=== PATIENT | female | born 1970 | race Caucasian/White ===

== ENCOUNTER 2016-10-09 08:18 | Emergency (ER) | payer OTHER ==
[~2016-10-09 08:18] MED LIST: LISINOPRIL10 MG PO
[2016-10-09 08:53] LABS: MICRO INDICATED? YES; URINE APPEARANCE CLEAR; URINE BILIRUBIN NEG (NEG); URINE BLOOD 1+ (NEG); URINE COLOR YELLOW; URINE GLUCOSE NEG (NORM); URINE KETONE NEG (NEG); URINE LEUKOCYTE ESTERASE NEG (NEG); URINE NITRATE NEG (NEG); URINE PROTEIN NEG (NEG); URINE SOURCE CLEAN CATCH; URINE SPECIFIC GRAVITY 1.025 (1.003-1.035); URINE UROBILINOGEN 0.2 MG/DL (NORM)
[2016-10-09 08:56] LABS: CULTURE INDICATED? NO; URINE BACTERIA NEG (NEG); URINE MUCUS PRESENT; URINE SQUAMOUS EPITHELIAL CELL MANY /[HPF]; URINE WBC 0-2 /[HPF] (0-5)
[2016-10-12 15:09] LABS: CHLAMYDIA TRACH Not Detected (Not Detected); N GONOR Not Detected (Not Detected)
== END 2016-10-09 09:17 | disposition home or self-care (01) ==
LOC: SED 08:18
PROVIDERS: Emergency Medicine
DX: N72 Inflammatory disease of cervix uteri (principal); I16.0 Hypertensive urgency; F17.210 Nicotine dependence, cigarettes, uncomplicated; Z79.899 Other long term (current) drug therapy
CPT/HCPCS: 81003; 84703; 87491; 87591; 87808; 87905; 96372; 99284; J0696

== ENCOUNTER 2017-01-10 11:15 | Emergency (ER) | payer OTHER ==
[2017-01-10 12:01] LABS: URINE SOURCE CLEAN CATCH
[2017-01-10 12:03] LABS: URINE APPEARANCE CLEAR; URINE BILIRUBIN NEG (NEG); URINE BLOOD 1+ (NEG); URINE COLOR YELLOW; URINE GLUCOSE NEG (NORM); URINE KETONE NEG (NEG); URINE LEUKOCYTE ESTERASE 1+ (NEG); URINE NITRATE NEG (NEG); URINE PROTEIN 1+ (NEG); URINE SPECIFIC GRAVITY 1.025 (1.003-1.035); URINE UROBILINOGEN 0.2 MG/DL (NORM)
[2017-01-10 12:32] LABS: MICRO INDICATED? YES
[2017-01-10 12:41] LABS: URINE RBC 0-2 /[HPF] (0-2)
[2017-01-10 12:42] LABS: URINE BACTERIA 1+ (NEG); URINE SQUAMOUS EPITHELIAL CELL MODERATE /[HPF]
[2017-01-12 08:26] LABS: CHLAMYDIA TRACH Not Detected (Not Detected); N GONOR Not Detected (Not Detected)
== END 2017-01-10 12:51 | disposition home or self-care (01) ==
LOC: SED 11:15
PROVIDERS: Physician Assistant
DX: A59.09 Other urogenital trichomoniasis (principal); Z76.0 Encounter for issue of repeat prescription; N76.0 Acute vaginitis; I10 Essential (primary) hypertension; F17.210 Nicotine dependence, cigarettes, uncomplicated; Z79.899 Other long term (current) drug therapy
CPT/HCPCS: 81003; 87210; 87491; 87591; 87808; 87905; 96372; 99283; J0696

== ENCOUNTER 2017-03-10 13:12 | Emergency (ER) | payer OTHER ==
[2017-03-10 15:13] LABS: URINE SOURCE CLEAN CATCH
[2017-03-10 15:19] LABS: MICRO INDICATED? YES; URINE APPEARANCE HAZY; URINE BILIRUBIN NEG (NEG); URINE BLOOD TRACE-LYSED (NEG); URINE COLOR DK YELLOW; URINE GLUCOSE NEG (NORM); URINE KETONE TRACE (NEG); URINE LEUKOCYTE ESTERASE 1+ (NEG); URINE NITRATE NEG (NEG); URINE PROTEIN TRACE (NEG); URINE SPECIFIC GRAVITY 1.025 (1.003-1.035)
[2017-03-10 15:22] LABS: URINE WBC 25-50 /[HPF] (0-5)
[2017-03-10 15:23] LABS: CULTURE INDICATED? YES; URINE BACTERIA 1+ (NEG); URINE SQUAMOUS EPITHELIAL CELL FEW /[HPF]
[2017-03-14 07:45] LABS: CHLAMYDIA TRACH Not Detected (Not Detected); N GONOR Not Detected (Not Detected)
== END 2017-03-10 16:22 | disposition home or self-care (01) ==
LOC: SED 13:12
PROVIDERS: Emergency Medicine
DX: N72 Inflammatory disease of cervix uteri (principal); N76.0 Acute vaginitis; I10 Essential (primary) hypertension; Z79.899 Other long term (current) drug therapy
CPT/HCPCS: 81003; 84703; 87086; 87210; 87491; 87591; 87808; 87905; 96372; 99284; J0696